=== PATIENT | male | born 1955 | race Caucasian/White ===

== ENCOUNTER → 2024-07-16 10:03 | Outpatient (BNVA) | payer MEDICARE, SELFPAY | PROVIDERS: Visit Provider Psychiatry & Neurology Neurology | DX: G20.A1 Parkinson's disease without dyskinesia, without mention of fluctuations (principal); I10 Essential (primary) hypertension; R29.2 Abnormal reflex; R29.6 Repeated falls | CPT/HCPCS: 99203 ==

== ENCOUNTER 2024-07-28 13:49 | Outpatient (CLI) | payer MEDICARE, SELFPAY ==
--- NOTE | 2024-07-28 14:30 | MR_ITS ---
WS: [id number] MRI BRAIN WITH AND WITHOUT CONTRAST HISTORY: G20.A1 - Parkinson's disease without dyskinesia, bradykinesia. COMPARISON: None available. TECHNIQUE: Multiplanar imaging performed through the brain with MultiHance 18 ml's IV. No acute infarcts are seen. Norton-white matter differentiation is well preserved. Mild hippocampal atrophy. There is only mild cerebral and cerebellar atrophy. Minimal small vessel disease. Prior lacunar infarct RIGHT basal ganglia. No prior hemorrhage. Ventricles and extra-axial spaces are normal. Clivus and pituitary gland are normal. Visualized posterior fossa and brainstem are also normal. Postcontrast images are negative for masses or vascular malformations. Dural venous sinuses are normal. Paranasal sinuses: Minimal mucoperiosteal thickening in the maxillary sinuses. No air-fluid levels. Mastoid air cells: Normal. Calvarium and scalp: Normal. MR/MR head wo/w con [id number] IMPRESSION: 1. No acute infarct or hemorrhage. No enhancing masses or vascular malformatio ns. 2. Small, chronic lacunar infarct RIGHT basal ganglia. 3. Mild cerebral and cerebellar atrophy. 4. Mild hippocampal atrophy.
--- NOTE | 2024-07-28 14:49 | MR_ITS ---
WS: [id number] MRA CAROTID ARTERIES HISTORY: Parkinsons COMPARISON: None available. TECHNIQUE: MRA is performed with intravenous gadolinium. MIP and source images are reviewed. Right: Normal cervical carotid artery. No stenosis at the bifurcation. Internal and external carotid arteries are widely patent. Left: Normal cervical carotid artery. No stenosis at the bifurcation. Internal and external carotid arteries are widely patent. Subclavian Arteries: Normal. Vertebral Arteries: Very proximal vertebral arteries are not well visualized. Slightly dominant LEFT vertebral artery. No occlusion or stenosis. MR/MR angio neck w con* [id number] IMPRESSION: 1. No cervical carotid artery stenosis. 2. Slightly dominant LEFT vertebral artery. No vertebral artery stenosis or oc clusion.
[2024-07-28] MEDS: gadobenate dimeglumine 20 mL vial 18 ML IV (15:17)
--- NOTE | 2024-07-28 16:00 | MR_ITS ---
WS: [id number] MRA ANGIOGRAPHY [place] HISTORY: G20.A1 - Parkinson's disease without dyskinesia, without ... COMPARISON: None available. TECHNIQUE: 3-D MR angiography is performed of the [place]. All images are reviewed including source images. Distal vertebral and basilar arteries are intact with no significant stenosis or plaque. Posterior cerebral arteries are normal course and caliber. Posterior communicating arteries are both patent. Mild atherosclerotic plaque in the cavernous carotid arteries. No high-grade stenosis and no aneurysm. Very mild narrowing of the distal middle cerebral arteries. No high-grade stenosis or occlusion. No aneurysm. Anterior cerebral arteries are normal. No paucity of vessels in the distal middle or anterior cerebral artery territories. MR/MR angio head wo con [id number] IMPRESSION: 1. No high-grade stenosis in the [place] or aneurysm. 2. Very minimal atherosclerotic plaque in the cavernous carotid arteries and M 1 segments.
== END 2024-07-28 13:50 | disposition home or self-care (01) ==
PROVIDERS: Visit Provider Psychiatry & Neurology Neurology
DX: G20.A1 Parkinson's disease without dyskinesia, without mention of fluctuations (principal); I10 Essential (primary) hypertension; I65.23 Occlusion and stenosis of bilateral carotid arteries; R93.0 Abnormal findings on diagnostic imaging of skull and head, not elsewhere classified; G31.89 Other specified degenerative diseases of nervous system; J34.89 Other specified disorders of nose and nasal sinuses
CPT/HCPCS: 70544; 70548; 70553

== ENCOUNTER → 2024-10-12 13:40 | Outpatient (BNVA) | payer MEDICARE, SELFPAY | PROVIDERS: Visit Provider Psychiatry & Neurology Neurology | DX: G20.A1 Parkinson's disease without dyskinesia, without mention of fluctuations (principal); R29.2 Abnormal reflex; R29.6 Repeated falls | CPT/HCPCS: 99212 ==